=== PATIENT | female | born 1965 | race Two or more races ===

== ENCOUNTER 2017-04-29 13:03 | Emergency (ER) | payer MEDICAID ==
[~2017-04-29] VITALS: Ht 162.6 cm; Wt 88.5 kg
[2017-04-29] MEDS ORDERED: JANUVIA25 MG ORAL (13:12)
[2017-04-29] MEDS ORDERED: BENAZEPRIL HCL20 MG ORAL (13:12)
[2017-04-29] MEDS ORDERED: OMEPRAZOLE20 M2 ORAL (13:12)
[2017-04-29] MEDS ORDERED: METFORMIN HCL1000 M1 ORAL (13:12)
[2017-04-29] MEDS ORDERED: GLIMEPIRIDE4 MG ORAL (13:12)
--- NOTE | 2017-04-29 13:44 | Emergency Room Report ---
History of Present Illness General Chief Complaint: General Complaint Source: Patient Present Illness HPI 51-year-old female history of hypertension diabetes, presenting with 2 days of left-sided facial numbness and weakness. Patient states that this has never occurred before. Denies any recent viral illness. Denies any head trauma, blurry vision, motor or sensory weakness of her extremities. Allergies: Coded Allergies: No Known Allergies (Unverified , 04/29/17) Patient History Past Medical History: see triage record Past Surgical History: none Pertinent Family History: none Last Menstrual Period: menopause Reviewed Nursing Documentation: PMH: Agreed, PSxH: Agreed Nursing Documentation-PMH Past Medical History: No History, Except For Hx Hypertension: Yes Hx Diabetes: Yes Review of Systems All Other Systems: negative except mentioned in HPI Physical Exam Vital Signs Date Time Temp Pulse Resp B/P (MAP) Pulse Ox O2 Delivery O2 Flow Rate FiO2 04/29/17 13:07 97.9 75 18 180/101 97 Room Air Sp02 EP Interpretation: reviewed, normal General Appearance: normal inspection, well appearing, no apparent distress, alert, GCS 15, non-toxic Head: normocephalic, atraumatic Eyes: bilateral eye normal inspection, bilateral eye PERRL, bilateral eye EOMI ENT: normal ENT inspection, normal pharynx, normal voice, moist mucus membranes Neck: normal inspection, full range of motion, supple Respiratory: normal inspection, lungs clear, normal breath sounds, no respiratory distress, no retraction, no wheezing, speaking full sentences, chest symmetrical Cardiovascular #1: normal inspection, regular rate, rhythm, no edema, normal capillary refill Cardiovascular #2: 2+ radial (R), 2+ radial (L) Gastrointestinal: normal inspection, non tender, soft, non-distended, no guarding Musculoskeletal: normal inspection, back normal, normal range of motion, non- tender Neurologic: alert, oriented x3, responsive, motor strength/tone normal, sensory intact, normal gait, speech normal, other - Left-sided facial droop, left-sided facial numbness, left-sided ptosis, unable to raise the eyebrows on the left side Psychiatric: normal inspection, judgement/insight normal, memory normal Skin: normal inspection, normal color, no rash, warm/dry, well hydrated, normal turgor Medical Decision Making Diagnostic Impression: Primary Impression: Johnson's palsy ER Course 51-year-old female with left-sided facial numbness/weakness for 2 days DDX: Likely Johnson's palsy rule out CVA Plan: Labs, CT head, steroid ER course: Patient has remained stable during ED stay. Disposition: Please note that this Emergency Department Report was dictated using [employer] case manager technology software, occasionally this can lead to erroneous entry secondary to interpretation by the dictation equipment EKG Diagnostic Results Rate: normal Rhythm: NSR ST Segments: no acute changes ASA given to the pt in ED: No Rhythm Strip Diag. Results EP Interpretation: yes Rate: 69 Rhythm: NSR, no PVC's, no ectopy Chest X-Ray Diagnostic Results Chest X-Ray Diagnostic Results : Chest X-Ray Ordered: Yes # of Views/Limited/Complete: 1 View Indication: Other EP Interpretation: Yes Interpretation: other - mild cardiomegaly Impression: Other - mild cardiomegaly Electronically Signed by: Electronically signed by Philipp Levy MD CT/MRI/US Diagnostic Results CT/MRI/US Diagnostic Results : Imaging Test Ordered: CT head Impression No hemorrhage or cortical edema. Calcification abutting the right frontal horn may be related to prior granulomatous disease. 2 mm focus of increased density near [place] question of a tiny cyst Electronically signed by Philipp Levy MD Last Vital Signs Date Time Temp Pulse Resp B/P (MAP) Pulse Ox O2 Delivery O2 Flow Rate FiO2 04/29/17 13:07 97.9 75 18 180/101 97 Room Air Disposition: HOME, SELF-CARE Condition: Stable Scripts Prednisone* (PREDNISONE*) 20 Mg Tablet 60 MG ORAL DAILY for 6 Days, #6 TAB 0 Refills Prov: Philipp Levy M.D. 04/29/17 hPilipp Levy M.D. Apr 29, 2017 13:44
[2017-04-29] MEDS ORDERED: PREDNISONE20 MG ORAL (13:54)
[2017-04-29 15:08] LABS: APPEARANCE,URINE CLEAR; KETONES,URINE NEGATIVE (NEGATIVE); LEUKOCYTE ESTERASE ,URINE 3+ (NEGATIVE); NITRITE,URINE NEGATIVE (NEGATIVE); PH,URINE 6 (4.5-8.0); PROTEIN,URINE NEGATIVE (NEGATIVE); UROBILINOGEN,URINE NORMAL MG/DL (0.0-1.0)
[2017-04-29 15:10] LABS: BASOPHILS % (AUTO) 0.5 % (0.0-2.0); EOSINOPHILS % (AUTO) 1.7 % (0.0-3.0); LYMPHOCYTES % (AUTO) 22.7 % (20.0-45.0); MEAN CORPUSCULAR HEMOGLOBIN 29.6 PG (27.0-31.0); MEAN CORPUSCULAR HGB CONC 32.3 G/DL (32.0-36.0); MEAN CORPUSCULAR VOLUME 92 FL (80-99); MEAN PLATELET VOLUME 7.6 FL (6.5-10.1); MONOCYTES % (AUTO) 4.5 % (1.0-10.0); NEUTROPHILS % (AUTO) 70.6 % (45.0-75.0); PLATELET COUNT 312 K/UL (150-450); RED BLOOD COUNT 4.18 M/UL (4.20-5.40); RED CELL DISTRIBUTION WIDTH 11.5 % (11.6-14.8); WHITE BLOOD COUNT 11.8 K/UL (4.8-10.8)
[2017-04-29 15:19] LABS: BACTERIA,URINE FEW /HPF; RBC,URINE 0-2 /HPF (0 - 2); SQUAMOUS EPITHELIAL CELL,UR FEW /LPF (NONE/OCC); WBC,URINE 20-30 /HPF (0 - 2)
[2017-04-29 15:22] LABS: TROPONIN I < 0.30 ng/mL (<=0.30)
[2017-04-29 15:28] LABS: ALANINE AMINOTRANSFERASE 56 U/L (3-33); ALBUMIN/GLOBULIN RATIO 1.3 (1.0-2.7); ANION GAP 13 (5-15); ASPARTATE AMINO TRANSFERASE 41 U/L (5-40); CALCIUM 9.1 mg/dL (8.6-10.2); CARBON DIOXIDE 24 mEQ/L (20-30); CHLORIDE 103 mEQ/L (98-107); CREATININE 0.7 mg/dL (0.5-0.9); GLOMERULAR FILTRATION RATE > 60 mL/min (>60); HEMOLYSIS 9; POTASSIUM 3.8 mEQ/L (3.4-4.9); SODIUM 140 mEQ/L (135-145); TOTAL PROTEIN 7.1 g/dL (6.6-8.7)
[2017-04-29 15:43] VITALS: BP 148/81
[2017-04-29] MEDS ORDERED: KEFLEX500 MG ORAL (16:08)
[2017-04-29 16:20] VITALS: BP 152/85
[2017-04-29 16:21] VITALS: BP 152/85
--- NOTE | 2017-04-30 08:44 | Diagnostic Imaging Report ---
Indications: Altered mental status Technique: Spiral acquisitions obtained through the brain. Angled axial and coronal 5 x 5 mm slices were reconstructed. Total dose length product 1291 mGycm. CTDI vol(s) 70 mGy. Dose reduction achieved using automated exposure control Comparison: None Findings: There is a large calcification in located immediately lateral to the caudate head on the right. A smaller calcification is seen within the left posterior parasagittal parietal cortex. No acute hemorrhage or edema. No mass effect or midline shift. A small focus of hyperattenuation is seen at the roof of the third ventricle. Normal brito-white differentiation. Normal size ventricles and extra-axial CSF spaces. Intact calvarium. Visualized orbits and sinuses are unremarkable. Mastoids are clear. 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 Johnson The CT scanner at [facility] is accredited by the [employer] and the scans are performed using protocols designed to limit radiation exposure to as low as reasonably achievable to attain images of sufficient resolution adequate for diagnostic evaluation.
--- NOTE | 2017-04-30 09:45 | Diagnostic Imaging Report ---
Indication: PAIN Technique: One view of the chest Comparison: none Findings: The heart is mildly enlarged. Lungs and pleural spaces are clear. Impression: Cardiomegaly. No acute process
--- NOTE | 2017-04-30 19:04 | Cardiology Report ---
APPROVED REPORT EKG Measurement Heart [id number] Normal sinus rhythm Minimal voltage criteria for LVH, may be normal variant Nonspecific T wave abnormality Abnormal ECG
== END 2017-04-29 16:23 | disposition home or self-care (01) ==
LOC: EMR 13:50
DX: G51.0 Bell's palsy (principal); E11.9 Type 2 diabetes mellitus without complications; I10 Essential (primary) hypertension
CPT/HCPCS: 36415; 70450; 71010; 80053; 81003; 82962; 83880; 84484; 85025; 87086; 93005; 99284